=== PATIENT | male | born 1955 | race Caucasian/White ===

== ENCOUNTER 2022-12-18 07:39 | Inpatient (IN) | payer MEDICARE, OTHER, SELFPAY ==
[2022-12-18] VITALS (30 sets, daily range): BP systolic 114–191; BP diastolic 73–128; PULSE 55–87; RESP 12–20; TEMP 36.4–36.8; O2SAT 94–100; BMI 26.5
--- NOTE | 2022-12-18 | ECHO_ITS ---
Patient Info Name: Johnathan Steele Age: 67 years : 1955 Gender: Male Ht: 72 in Wt: 200 lbs BSA: 2.16 m2 HR: 60 bpm BP: 164 / 100 mmHg Heart Rhythm: Sinus Rhythm Technical Quality: Poor Exam Date: 12/18/2022 2:50 PM Exam Location: [facility] Pul[facility] Patient Status: Inpatient Admit Date: 12/18/2022 Staff Ordering Physician: Sathish Deleon MD Soil Specialist: Domi Frost RDCS Attending Provider: Barry Petit MD Exam Type: CA echo dop color flow w con Study Info Indications I21.3 - ST elevation (STEMI) myocardial infarction of unspecified site Complete two-dimensional, color flow and Doppler transthoracic echocardiogram is performed with contrast to opacify the left ventricle and to improve the deliniation of the left ventricle endocardial borders. Contrast/Agitated Saline Contrast/Ag. Saline: Definity Amount: 5.00 ml Administered By: Domi Frost RDCS Existing IV Access: Yes IV Access Condition: patent with no signs of infiltration Reason for Poor Study: poor echocardiographic windows Summary 1. Left ventricular chamber dimension is normal. 2. Left ventricular systolic function is normal, estimated at 65-70%. 3. There is mildly increased left ventricular wall thickness. 4. The left ventricular diastolic function is grade I diastolic dysfunction. 5. The basal inferolateral wall is hypokinetic. 6. Left atrial chamber dimension is mildly enlarged. 7. There is mild mitral valve regurgitation. 8. There is mild tricuspid valve regurgitation. Left Ventricle Left ventricular chamber dimension is normal. Left ventricular systolic function is normal, estimated at 65-70%. There is mildly increased left ventricular wall thickness. The left ventricular diastolic function is grade I diastolic dysfunction. The basal inferolateral wall is hypokinetic. All other boss appear normal. Right Ventricle Right ventricular chamber dimension is normal. Right ventricular systolic function is normal. Left Atria Left atrial chamber dimension is mildly enlarged. Right Atria Right atrial chamber dimension is normal. Atrial Septum Intact interatrial septum visualized by color flow imaging. Aortic Valve The aortic valve is trileaflet. There is no aortic valve sclerosis. There is no aortic valve stenosis. There is trace aortic valve regurgitation. Pulmonic Valve The pulmonic valve is normal. There is no pulmonic valve stenosis. There is trace pulmonic regurgitation. Mitral Valve The mitral valve has normal leaflets. There is no mitral valve stenosis. There is mild mitral valve regurgitation. Tricuspid Valve The tricuspid valve leaflets are normal. There is no significant tricuspid valve stenosis. There is mild tricuspid valve regurgitation. No pulmonary hypertension, estimated pulmonary arterial systolic pressure is 20 mmHg. Pericardium/Pleural The pericardium appears normal. There is no pericardial effusion. Aorta The aortic root size at the sinus of Valsalva is normal. Left Ventricular Outflow Tract Name Value Normal LVOT 2D LVOT Diameter 1.89 cm LVOT Doppler LVOT Peak Gradient 7 mmHg LVOT Mean Gradien
--- NOTE | 2022-12-18 07:45 | ECG_ITS ---
Measurements Intervals [place] Rate: 54 P: -40 NH: 123 QRS: 30 QRSD: 110 T: 83 QT: 407 QTc: 387 Interpretive Statements SINUS BRADYCARDIA MARKED ST ELEVATION, CONSIDER INFERIOR INJURY [MARKED ST ELEVATION W/O NORMALLY INFLECTED T-WAVE IN II/aVF] ACUTE WI ABNORMAL ECG NO PREVIOUS ECG AVAILABLE FOR COMPARISON Electronically Signed On 12-18-2022 12:08:38 CDT by Barry Petit M.D.
--- NOTE | 2022-12-18 08:11 | ED.CHESTPAIN ---
HPI - Chest Pain General Chief Complaint: Chest Pain Stated Complaint: chest pain Time Seen by Provider: 12/18/22 08:01 Source: patient, RN notes reviewed and old records reviewed Mode of arrival: wheelchair Limitations: no limitations History of Present Illness HPI narrative: This is a 67 year old male who presents for evaluation of chest pain. Patient states he developed substernal chest pressure 1 hour ago. He reports this pressure comes and goes. He states he is really uncomfortable. He denies radiating pain. He reports shortness of breath and nausea. He denies history of heart attack or heart disease. Related Data Allergies Allergy/AdvReac Type Severity Reaction Status Date / Time No Known Allergies Allergy Verified 07/01/14 12:07 Review of Systems Constitutional: Constitutional: Reports fatigue Cardiovascular: Cardiovascular: Reports chest pain and Denies radiating jaw, neck or arm pain Respiratory: Respiratory: Reports dyspnea Gastrointestinal: Gastrointestinal: Denies abdominal pain and Reports nausea PMFSH Past Medical History Medical History (Updated 12/18/22 @ 09:25 by Kenya Foote MD) Patient denies medical problems Social History Social History (Updated 12/18/22 @ 09:21 by Kenya Foote MD) Smoking status: Current every day smoker Exam Const: General: alert and diaphoretic Nutritional Appearance: well nourished Orientation/consciousness: patient oriented x3 HENMT: Head: normal to inspection Eyes: EOM: EOMs intact bilaterally Chest: Chest palpation & inspection: normal inspection of the chest Resp: Effort & Inspection: normal respiratory effort Auscultation: clear to auscultation bilaterally Cardio: Rate: bradycardic Rhythm: regular rhythm Heart sounds: no murmurs GI: GI Palp: Yes Soft to palpation, No Tenderness to palpation present (GI), No Guarding due to palpation present (GI) and No Rigid due to palpation Auscultation: normal bowel sounds Skin: General skin exam: normal color Rashes: no rashes Neuro: General: patient oriented x3, moves all extremities and CN's II-XI intact bilaterally Gait exam (Neuro): Normal gait present Extrem: General: normal to inspection and no pedal edema Psych: Mental Status: mental status grossly normal Affect: normal affect Attitude: cooperative Course Reevaluation(s) Reevaluation #1: Cath team is at bedside . PAtient and informed that he is having an SC. Patient given aspirin 324 mg PO , heparin bolus and zofran 4 mg IV. No metoprolol given patient is olivia cardic. No nitro as inferior SC . Patient reports pain 2.10. Date: 12/18/22 Time: 08:05 Vital Signs Vital signs: Vital Signs Temperature 97.6 F 12/18/22 07:45 Pulse Rate 55 L 12/18/22 07:45 Respiratory Rate 16 12/18/22 07:45 Blood Pressure 150/84 H 12/18/22 07:45 Pulse Oximetry 100 12/18/22 07:45 Oxygen Delivery Room Air 12/18/22 07:45 Temperature 97.6 F 12/18/22 07:45 Pulse Rate 59 L 12/18/22 08:12 Respiratory Rate 18 12/18/22 08:12 Blood Pressure 131/107 H 12/18/22 08:12 Pulse Oximetry 99 12/18/22 08:12 Oxygen Delivery Nasal Cannula 12/18/22 08:05 Oxygen Flow Rate 2 12/18/22 08:05 MDM - Chest Pain Lab Data 12/18/22 08:05 12/18/22 08:05 Labs: Lab Results 12/18/22 12/18/22 12/18/22 Range/Units 08:05 08:05 08:05 WBC 11.7 H (4.5-10.0) K/mm3 RBC 5.31 (4.6-6.20) M/mm3 Hgb 15.5 (14.0-18.0) g/dL Hct 47.7 (42.0-52.0) % MCV 89.8 (80-100) fl MCH 29.2 (26-34) pg MCHC 32.5 (32-36) g/dl RDW 13.4 (11.5-14.5) % Plt Count 270 (150-375) k/mm3 MPV 9.7 (7.4-10.4) fl Immature Gran % (Auto) 0.5 (0-0.5) % Neut % (Auto) 58.8 (45.5-73.1) % Lymph % (Auto) 29.5 (18.3-44.2) % [place] % (Auto) 7.9 (2.6-8.5) % Eos % (Auto) 2.4 (0-4.4) % Baso % (Auto) 0.9 (0.2-1.2) % Lymph # (Auto) 3.45 H (0.9-3.2) K/mm3 Mon
[2022-12-18] MEDS: ASPIRIN 81 MG CHEWABLE TABLET 324 MG PO (08:12)
[2022-12-18] MEDS: ONDANSETRON INJ 4 MG/2 ML VIAL IV PUSH (08:12)
--- NOTE | 2022-12-18 08:13 | PC.NURSE ---
Per verbal order read back by Dr. Foote, 4000 units Heparin given by [facility] Blood.
[2022-12-18 08:17] LABS: Basophils Absolute Auto 0.1 K/mm3 (0.0-0.1); Basophils Percent Auto 0.9 % (0.2-1.2); Eosinophils Absolute Auto 0.3 K/mm3 (0-0.3); Eosinophils Percent Auto 2.4 % (0-4.4); Hematocrit 47.7 % (42.0-52.0); Hemoglobin 15.5 g/dL (14.0-18.0); Immature Granulocyte Absolute 0.06 K/mm3 (0.00-0.031); Immature Granulocyte Percent A 0.5 % (0-0.5); Lymphocytes Absolute Auto 3.45 K/mm3 (0.9-3.2); Lymphocytes Percent Auto 29.5 % (18.3-44.2); Mean Corpuscular HGB Conc 32.5 g/dl (32-36); Mean Corpuscular Hemoglobin 29.2 pg (26-34); Mean Corpuscular Volume 89.8 fl (80-100); Mean Platelet Volume 9.7 fl (7.4-10.4); Monocytes Absolute Auto 0.9 K/mm3 (0.1-0.6); Monocytes Percent Auto 7.9 % (2.6-8.5); Neutrophils Absolute Auto 6.9 K/mm3 (1.3-6.7); Neutrophils Percent Auto 58.8 % (45.5-73.1); Platelet Count Result 270 k/mm3 (150-375); Red Blood Count 5.31 M/mm3 (4.6-6.20); Red Cell Distribution Width 13.4 % (11.5-14.5); White Blood Count 11.7 K/mm3 (4.5-10.0)
[2022-12-18 08:26] LABS: Alanine Aminotransferase 18 U/L (6-50); Alkaline Phosphatase 116 U/L (38-126); Anion Gap 7 mmol/L (8-16); Aspartate Amino Transferase 21 U/L (17-59); Bilirubin,Total 0.6 mg/dL (0.2-1.3); Blood Urea Nitrogen 15 mg/dL (9-20); Calcium 8.8 mg/dL (8.4-10.2); Carbon Dioxide 26 mmol/L (22-30); Chloride 104 mmol/L (98-107); Estimated CRCL calculation 65 ml/min; Estimated Glomerular Filt Rate > 60; Glucose 150 mg/dL (65-110); Lipase 118 U/L (23-300); Potassium 3.8 mmol/L (3.4-5.0); Sodium 137 mmol/L (137-145)
[2022-12-18 08:31] LABS: Prothrombin Time 13.3 Seconds (11.1-14.7)
[2022-12-18 08:32] LABS: Partial Thromboplastin Time 26.3 SECONDS (22.3-36.8)
[2022-12-18 08:38] LABS: Troponin I < 0.012 ng/mL (0.000-0.034)
--- NOTE | 2022-12-18 09:03 | ECG_ITS ---
Measurements Intervals [place] Rate: 59 P: 56 IN: 183 QRS: 26 QRSD: 102 T: 31 QT: 367 QTc: 366 Interpretive Statements SINUS BRADYCARDIA OTHERWISE NORMAL ECG COMPARED TO ECG 12/18/2022 07:53:21 ACUTE INFERIOR CURRENT OF INJURY IS NO LONGER SEEN Electronically Signed On 12-18-2022 12:18:32 CDT by Barry Petit M.D.
--- NOTE | 2022-12-18 09:07 | PM.IMHP ---
H&P: HPI History of Present Illness Date/Time: 12/18/22 09:07 Chief Complaint: chest pain Narrative: this is a 67-year-old man I am seeing in the cardiac catheterization lab phase he is being prepared for emergency angiography in the setting of ST-elevation VA. He is unknown to me prior to this encounter. He reports no known history of significant medical problems. He is a cigarette smoker. He started to experience retrosternal chest pain about 1 hour prior to coming to the emergency room this morning where his electrocardiogram demonstrates acute inferior wall VA. he has no active complaints other than moderate retrosternal chest pain with some nausea. Review of Systems Review of Systems: ROS unobtainable: Yes unobtainable due to medical condition Meds Home Medications and Allergies Allergies Allergy/AdvReac Type Severity Reaction Status Date / Time No Known Allergies Allergy Verified 07/01/14 12:07 Vital Signs Vital Signs - 24 hr 12/18/22 07:45 12/18/22 08:12 12/18/22 08:05 Temperature 36.4 C Pulse Rate 55 L 59 L Respiratory Rate 16 18 Blood Pressure 150/84 H 131/107 H Pulse Oximetry 100 99 99 Oxygen Delivery Room Air Nasal Cannula Oxygen Flow Rate 2 Exam Const: General: uncomfortable Other: Well-developed well-nourished white male appearing his stated age mild distress with chest pain HENMT: Mouth: Yes moist mucous membranes Eyes: Sclera: sclerae normal Neck: Neck: supple and no JVD Other: normal carotid pulses bilateral Resp: Effort & Inspection: normal respiratory effort Auscultation: clear to auscultation bilaterally Cardio: Rate: regular rate Rhythm: regular rhythm Other: no murmur, S4 gallop is audible GI: GI Palp: Yes Soft to palpation Auscultation: normal bowel sounds Skin: General skin exam: normal color Neuro: Other: alert and oriented x3 Extrem: Other: no edema, adequate arterial perfusion H&P: Results Labs Labs: Short CBC 12/18/22 Range/Units 08:05 WBC 11.7 H (4.5-10.0) K/mm3 Hgb 15.5 (14.0-18.0) g/dL Hct 47.7 (42.0-52.0) % Plt Count 270 (150-375) k/mm3 [facility] 12/18/22 08:05 Sodium 137 Potassium 3.8 Chloride 104 Carbon Dioxide 26 BUN 15 Creatinine 1.10 Glucose 150 H Calcium 8.8 Cardiac Enzymes 12/18/22 Range/Units 08:05 Troponin I < 0.012 (0.000-0.034) ng/mL Liver Function 12/18/22 Range/Units 08:05 Total Bilirubin 0.6 (0.2-1.3) mg/dL AST 21 (17-59) U/L ALT 18 (6-50) U/L Alkaline Phosphatase 116 (38-126) U/L Albumin 4.0 (3.5-5.1) g/dL Assessment and Plan Assessment and plan (1) ST elevation [place] (STEMI): Code(s): I21.3 - ST elevation (STEMI) myocardial infarction of unspecified site Status: Acute Plan 67-year-old man with chronic cigarette smoking presents with chest pain and acute inferior wall ST-elevation VA. PlansAre now being made for emergency angiography and revascularization as indicated by those findings Barry Petit MD [facility]
--- NOTE | 2022-12-18 09:10 | WPDCARDPROC ---
Cardiac Cath Procedure Note Date of procedure:: 12/18/22 Performing physician:: Barry Petit MD Indication:: ST elevation ID Brief clinical history:: this is a 67-year-old man longstanding cigarette smoker who presents this morning with chest pain and ECG evidence of acute inferior wall ID Procedure Procedure performed:: emergency coronary angiography emergency PCI (FITZ) to the proximal right coronary artery left ventriculography Sedation/Medication given:: no sedation given the patient received aspirin in the emergency room received 180 mg Brilinta prior to PCI and procedural anticoagulation with bolus and infusion of Angiomax. Case start time 8:20 a.m. case end time 8:53 a.m. Access site:: right femoral artery Estimated blood loss:: 25 cc Procedure note:: patient was brought to the cardiac blood bank laboratory technologist in emergent setting described above the right femoral triangle was prepared and draped in the usual fashion. With 10 cc of lidocaine was and infiltrated for anesthesia over the femoral artery the vessel was then punctured using the modified Seldinger technique and a 6 Icelandic vascular sheath was placed. After this I used a 5 Icelandic FL4 catheter to engage and inject the left coronary artery in multiple projections. Following this I used a 6 [place]ic JR4 guiding catheter to engage inject the right coronary artery. Following this the cineangiograms were then reviewed and PCI of the right coronary artery was recommended and carried out as detailed below. Following PCI used a 5 Icelandic angled pigtail catheter to measure left-sided hemodynamics and to inject LV g in the 30 degree COMBS projection. The case was then terminated. the sheath was sutured into position with 2-0 silk and the patient was taken to the ICU for post mi/PCI recovery. Procedure was well tolerated and uncomplicated. There was no evidence of groin hematoma upon him leaving the cardiac catheterization lab. Findings:: Hemodynamics: Central aortic pressure is 184 over 96 left ventricle 184/5 end-diastolic 18 there is no gradient on pullback across the aortic valve. Left ventricle: The inferior wall of the LV is hypodynamic but not akinetic the overall systolic function is normal ejection fraction is 55% by visual estimation the left main coronary artery is short but patent. The left anterior descending is a heavily calcified artery proximally. There is a 90-95% stenosis in proximal LAD in this segment of heavy calcification this is a medium length tubular lesion. There is also total occlusion of a proximal diagonal branch that was originating from this proximal heavily calcified area. The remainder of the LAD is medium in size but free of significant lesions. The circumflex size a medium caliber artery which has mild 30% stenosis in the trunk of the circumflex. The 1st OM branch arises as a ramus intermedius and has a proximal 60-70% stenosis. There was TIKA 3 flow throughout the circumflex system. Right coronary artery is severely diseased proximally it is dominant to the posterior circulation. There is 99% stenosis in RCA between the 1st and 2nd portions. There was then mild to moderate stenosis back to the ostium. There is TIKA 1 flow in the RCA at the start of the case. Intervention: The right coronary as stated above was engaged using a 6 [place]ic JR4 catheter. The 0.014 BMW coronary guidewire was used to wire the artery and it was placed into the distal RCA without difficulty. I pre-dilated the lesion using a 3 x 20 mm Jovany PTCA balloon at nominal pressure. I then stented the target lesion using a 3.5 x 30 mm Orsiro stent with a very good result at the target lesion. There was proximal disease to the stent which I then treated with another 3.5 x 13 mm stent of the same type. I then post dilated the entire stented area using a 3.75 by 20 mm noncompliant balloon at 14 atmospheres. At the end of the procedure the vessel is widely
--- NOTE | 2022-12-18 09:15 | PC.NURSE ---
This patient, Johnathan Steele, was admitted to Intensive Care Unit-5. Patient/family oriented to hospital policies and general routines including ID bracelet, bed and alarms, visiting hours, pain management, procedures, bathroom and other care routines, personal items, smoking policy, room service/diet, and visiting hours. Information on how to activate the Rapid Response Team has been discussed. Patient/Family are encouraged to report perceived risks to care and to ask questions if they do not understand what they are told or what they should do.
--- NOTE | 2022-12-18 09:30 | WPDCNINT ---
Assessment and Plan Assessment and plan (1) ST elevation [place] (STEMI): Code(s): I21.3 - ST elevation (STEMI) myocardial infarction of unspecified site Status: Acute Assessment and Plan: Inferior STEMI status post PCI with 2x FITZ placement in RCA Patient also has a high-grade calcified proximal LAD lesion which will be treated in a staged fashion likely at outside hospital Admit to ICU and telemetry monitoring Currently hemodynamically stable Arterial sheath will be removed as per protocol Check echocardiogram Patient has been started on aspirin losartan metoprolol Crestor and Brilinta IV fluids (2) Coronary artery disease: Code(s): I25.10 - Atherosclerotic heart disease of [place] coronary artery without angina pectoris Status: Acute Assessment and Plan: See above (3) Tobacco abuse: Code(s): Z72.0 - Tobacco use Status: Acute Assessment and Plan: Patient was counseled and encouraged to quit smoking (4) Hypertension: Code(s): I10 - Essential (primary) hypertension Status: Acute Assessment and Plan: Patient states that he has history of hypertension the past and was on medication in the past but was taken off as his blood pressure was better. He states that his blood pressure was normal on last physical exam 6 months ago as an outpatient. Currently his blood pressure is elevated but it be from anxiety. Patient has been started on metoprolol losartan I will add p.r.n. labetalol and hydralazine at this time. Plan DVT prophylaxis -Angiomax Nutrition -heart healthy diet Code Status - Full Code Claims Service Adjustor Consult Note Consult date: 12/18/22 Reason for consult: STEMI HPI: Johnathan Steele is a 67 year old male with no significant past medical history presented with chief complaint of chest pressure. Chest pressure started suddenly about 1 hour prior to presentation. Patient rates at 3/10. No radiation. Chest pressure was associated with nausea but no vomiting also was associated with shortness of breath. Patient was brought to ER and on workup found to be having ST segment elevation in his inferior leads. Code STEMI was called and patient was taken to cardiac catheterization lab where he underwent PCI. Cardiac catheterization showed 1.? ? Right coronary dominant circulation with acute inferior ST-elevation [place] with long area of high-grade stenosis in the proximal right coronary artery being the culprit for this.? This was successfully treated using the two? 3.5 mm Orsiro? drug-eluting stents detailed above with very good angiographic result. 2.? ? High-grade heavily calcified proximal LAD disease which obviously is unrelated to this infarction as detailed above 3. ? moderate disease in the ramus intermedius/ OM1 and mild disease in the trunk of the circumflex as detailed above 4. ? mild inferior hypokinesia with overall normal ejection fraction Patient now admitted to ICU for further evaluation. At this time he states his chest pain has completely resolved and he denies any symptoms. Patient denies fever, chest pain, shortness of breath, cough, nausea vomiting, abdominal pain,, diarrhea, headache or constipation.. All other systems reviewed and were negative Patient is in sinus rhythm with heart rate in 60s saturation 98% on nasal cannula and blood pressure is slightly elevated Review of Systems Review of Systems: All systems reviewed & are unremarkable except as noted in HPI and below (HPI) [facility] Past Medical History Medical History (Updated 12/18/22 @ 10:06 by Sathish Deleon MD) Hx of nephrolithotomy with removal of calculi Hypertension Nephrolithiasis Patient denies medical problems Sciatic nerve pain Social History Social History (Updated 12/18/22 @ 10:04 by Sathish Deleon MD) Social History: Denies any alcohol or drug use. Smokes 1 pack over a week. Has been smoking for more than 40 years. Smoking status: Current every day smoker Meds
[2022-12-18] MEDS: ROSUVASTATIN 10 MG TABLET 20 MG PO (09:47)
[2022-12-18] MEDS: SODIUM CHLORIDE 0.9% IV 1,000 ML 125 ML IV CONT (09:47)
[2022-12-18] MEDS: LOSARTAN POTASSIUM 50 MG TABLET PO (09:47)
--- NOTE | 2022-12-18 09:56 | PC.NURSE ---
Cardiopulmonary Rehab Services flyer was given to patient.
[2022-12-18] MEDS: METOPROLOL TARTRATE 25 MG TABLET PO ×2 (11:09→18:02)
[2022-12-18] MEDS: hydrALAZINE HCL 20 MG/ML VIAL IV PUSH (11:19)
[2022-12-18 11:35] LABS: Cholesterol 257 mg/dL (0-200); HDL Direct 44 mg/dL; Triglycerides 120 mg/dL (<150)
[2022-12-18 11:45] LABS: LDL Cholesterol Direct 169 mg/dL
[2022-12-18 11:50] LABS: Troponin I 0.337 ng/mL (0.000-0.034)
[2022-12-18] MEDS: PERFLUTREN LIPID MICROSPHERES 1.5 ML VIAL DILUTED TO 10 ML TOTAL VOLUME IV PUSH (15:05)
--- NOTE | 2022-12-18 15:25 | IVDEFINITY ---
Prior to administration of IV Definity the patient was educated on the risks and benefits of the imaging enhancing agent including potential adverse side effects. The patient verbalized understanding. Allergies were verified. No exclusion criteria were identified and at least one of the following inclusion criteria were met: 1) physician request, 2) patient technically difficult to image (per the [employer] Echocardi[employer] guidelines of two or more segments not discernable within the apical view), or 3) questionable left ventricular function. ?
[2022-12-18] MEDS: TICAGRELOR 90 MG TABLET PO (20:37)
[2022-12-19] VITALS (19 sets, daily range): BP systolic 99–141; BP diastolic 52–108; PULSE 52–66; RESP 14–22; TEMP 36.7–36.9; O2SAT 96–99
[2022-12-19] MEDS: METOPROLOL TARTRATE 25 MG TABLET PO ×3 (00:59→19:19)
[2022-12-19 03:48] LABS: Hematocrit 44.5 % (42.0-52.0); Hemoglobin 14.9 g/dL (14.0-18.0); Mean Corpuscular HGB Conc 33.5 g/dl (32-36); Mean Corpuscular Hemoglobin 29.7 pg (26-34); Mean Corpuscular Volume 88.8 fl (80-100); Mean Platelet Volume 9.9 fl (7.4-10.4); Platelet Count Result 237 k/mm3 (150-375); Red Blood Count 5.01 M/mm3 (4.6-6.20); Red Cell Distribution Width 13.4 % (11.5-14.5); White Blood Count 12.7 K/mm3 (4.5-10.0)
[2022-12-19 04:03] LABS: Alanine Aminotransferase 17 U/L (6-50); Albumin Level 3.5 g/dL (3.5-5.1); Alkaline Phosphatase 107 U/L (38-126); Anion Gap 6 mmol/L (8-16); Aspartate Amino Transferase 30 U/L (17-59); Bilirubin,Total 0.3 mg/dL (0.2-1.3); Blood Urea Nitrogen 19 mg/dL (9-20); Calcium 8.5 mg/dL (8.4-10.2); Carbon Dioxide 24 mmol/L (22-30); Chloride 109 mmol/L (98-107); Estimated CRCL calculation 65 ml/min; Estimated Glomerular Filt Rate > 60; Glucose 117 mg/dL (65-110); Magnesium 2.1 mg/dL (1.6-2.3); Sodium 139 mmol/L (137-145)
--- NOTE | 2022-12-19 05:11 | ECG_ITS ---
Measurements Intervals [place] Rate: 55 P: 72 IA: 172 QRS: 17 QRSD: 93 T: -24 QT: 386 QTc: 372 Interpretive Statements SINUS BRADYCARDIA NONSPECIFIC T-WAVE ABNORMALITY ABNORMAL ECG COMPARED TO ECG 12/18/2022 11:11:36 T-WAVE ABNORMALITY NOW PRESENT Electronically Signed On 12-19-2022 12:14:11 CDT by Karan Gonzalez M.D.
[2022-12-19] MEDS: TICAGRELOR 90 MG TABLET PO ×2 (08:19→19:20)
[2022-12-19] MEDS: LOSARTAN POTASSIUM 50 MG TABLET PO (08:19)
[2022-12-19] MEDS: ASPIRIN 81 MG CHEWABLE TABLET PO (08:19)
[2022-12-19] MEDS: ROSUVASTATIN 10 MG TABLET 20 MG PO (08:19)
--- NOTE | 2022-12-19 08:20 | WPDINTPN ---
Progress Note: A&P Assessment and Plan (1) ST elevation [place] (STEMI): Code(s): I21.3 - ST elevation (STEMI) myocardial infarction of unspecified site Status: Acute Assessment and Plan: Inferior STEMI status post PCI with 2x FITZ placement in RCA Patient also has a high-grade calcified proximal LAD lesion which will be treated in a staged fashion likely at outside hospital Currently hemodynamically stable and chest pain-free Continue telemetry monitoring Continue aspirin losartan metoprolol Crestor and Brilinta IV fluids completed Echocardiogram Summary ? 1. Left ventricular chamber dimension is normal. ? 2. Left ventricular systolic function is normal, estimated at 65-70%. ? 3. There is mildly increased left ventricular wall thickness. ? 4. The left ventricular diastolic function is grade I diastolic dysfunction. ? 5. The basal inferolateral wall is hypokinetic. ? 6. Left atrial chamber dimension is mildly enlarged. ? 7. There is mild mitral valve regurgitation. ? 8. There is mild tricuspid valve regurgitation. (2) Coronary artery disease: Code(s): I25.10 - Atherosclerotic heart disease of [place] coronary artery without angina pectoris Status: Acute Assessment and Plan: See above (3) Tobacco abuse: Code(s): Z72.0 - Tobacco use Status: Acute Assessment and Plan: Patient was counseled and encouraged to quit smoking (4) Hypertension: Code(s): I10 - Essential (primary) hypertension Status: Acute Assessment and Plan: Patient states that he has history of hypertension the past and was on medication in the past but was taken off as his blood pressure was better. He states that his blood pressure was normal on last physical exam 6 months ago as an outpatient. Blood pressure control improved with metoprolol losartan He is also on p.r.n. labetalol and hydralazine at this time. Plan DVT prophylaxis -patient ambulating Nutrition -heart healthy diet Code Status - Full Code Transfer out of ICU today Subjective Date/time seen: 12/19/22 Overnight events reviewed. Afebrile Patient states he feels good and denies any complaints this morning. He feels he is ready to be discharged. Patient denies fever, chest pain, shortness of breath, cough, nausea vomiting, abdominal pain,, diarrhea, headache or constipation.. All other systems were reviewed and were negative Sinus Michael on the monitor and blood pressure improved. Other Vitals acceptable Review of Systems Review of Systems: All systems reviewed & are unremarkable except as noted in HPI and below (HPI) Exam Narrative: General: Pt is alert awake and in NAD Lungs/Chest: Trachea central Clear BS B/L, No crackles or wheezing. Cardiac: RRR. Normal S1 S2. No murmurs Circulation: Pedal pulses are intact and symmetrical. Abdomen: Normal bowel sounds.. Soft. NT. ND. Extremities: No clubbing, cyanosis or edema. Warm small area of bruising in the right groin with no hematoma felt on exam. No tenderness : [place] in place Neurologic: Follows commands. Moves all 4 extremities PERRL AO x3 Skin: No Rash Objective Data Vital Signs Vital Signs: Vital Signs - 24 hr 12/18/22 09:15 12/18/22 09:30 12/18/22 10:00 Temperature Pulse Rate 62 64 75 Respiratory Rate 16 18 13 Blood Pressure 171/98 H 169/92 H 171/100 H Pulse Oximetry 98 98 100 Oxygen Delivery 12/18/22 10:00 12/18/22 10:00 12/18/22 10:30 Temperature Pulse Rate 67 78 Respiratory Rate 18 Blood Pressure 191/128 H Pulse Oximetry 100 Oxygen Delivery Room Air 12/18/22 11:09 12/18/22 11:00 12/18/22 12:45 Temperature Pulse Rate 70 63 70 Respiratory Rate 18 20 Blood Pressure 164/100 H 133/88 Pulse Oximetry 99 98 Oxygen Delivery 12/18/22 12:00 12/18/22 13:00 12/18/22 12:15 Temperature Pulse Rate 70 73 Respiratory Rate 18 18 Blood Pressure 145/90 H 121/76 Pulse Oximetry 98 98 Oxygen Delivery Room
--- NOTE | 2022-12-19 08:58 | PM.PNCARD ---
Progress Note: A&P Assessment and Plan (1) ST elevation [place] (STEMI): Code(s): I21.3 - ST elevation (STEMI) myocardial infarction of unspecified site Status: Acute Assessment and Plan: Status post PCI to the RCA with 2 FITZ. Looks good. Okay to transfer intermediate care unit. Change his metoprolol to 25 mg p.o. q.12 hours as he is mildly bradycardic.. Continue losartan. Will add to his regimen as needed. Anticipate DC tomorrow (2) Hypertension: Code(s): I10 - Essential (primary) hypertension Status: Acute Assessment and Plan: Continue losartan and metoprolol. Follow BP and up titrate or add to this regimen as needed (3) Tobacco abuse: Code(s): Z72.0 - Tobacco use Status: Acute Assessment and Plan: Tobacco abuse counseling performed. (4) Coronary artery disease: Code(s): I25.10 - Atherosclerotic heart disease of [place] coronary artery without angina pectoris Status: Acute Assessment and Plan: Continue dual anti-platelet therapy, statin, metoprolol, losartan. Tobacco abuse counseling performed. Will need intervention to the LAD as an outpatient to be scheduled before discharge (5) Hyperlipidemia LDL goal <70: Code(s): E78.5 - Hyperlipidemia, unspecified Status: Acute Assessment and Plan: Continue statin Subjective Date/time seen: 12/19/22 08:58 Interval history: 67-year-old admitted for an inferior STEMI status post PCI Date of service 12/19/2022: Feels wonderful today. No chest pain, shortness of breath. No groin pain. Review of Systems Review of Systems: All systems reviewed & are unremarkable except as noted in HPI and below Constitutional: Constitutional: Denies body ache(s) ENT: Reports Normal hearing present Cardiovascular: Cardiovascular: Denies chest pain Gastrointestinal: Gastrointestinal: Denies abdominal pain Genitourinary: Genitourinary: Denies hematuria Psychiatric: Psychiatric: Denies behavioral changes Endocrine: Endocrine: Denies change in body appearance Hematologic/Lymphatic: Hematologic/Lymphatic: Denies easy bleeding Exam Const: General: comfortable and no acute distress HENMT: Face/Nose/Sinus: Normal nares present Mouth: Yes moist mucous membranes Eyes: Sclera: sclerae normal Neck: Neck: supple and no JVD Other: normal carotid pulses bilateral Resp: Effort & Inspection: normal respiratory effort Auscultation: clear to auscultation bilaterally Cardio: Rate: bradycardic Rhythm: regular rhythm Other: no murmur, S4 gallop is audible GI: Auscultation: normal bowel sounds Skin: General skin exam: normal color Neuro: Speech: normal speech Sensory Exam: normal sensation Other: alert and oriented x3 Extrem: Other: Right groin is free of hematoma or bruit. Does have some bruise Psych: Mental Status: mental status grossly normal Objective Data Vital Signs Vital Signs: Vital Signs - 24 hr 12/18/22 09:15 12/18/22 09:30 12/18/22 10:00 Temperature Pulse Rate 62 64 75 Respiratory Rate 16 18 13 Blood Pressure 171/98 H 169/92 H 171/100 H Pulse Oximetry 98 98 100 Oxygen Delivery 12/18/22 10:00 12/18/22 10:00 12/18/22 10:30 Temperature Pulse Rate 67 78 Respiratory Rate 18 Blood Pressure 191/128 H Pulse Oximetry 100 Oxygen Delivery Room Air 12/18/22 11:09 12/18/22 11:00 12/18/22 12:45 Temperature Pulse Rate 70 63 70 Respiratory Rate 18 20 Blood Pressure 164/100 H 133/88 Pulse Oximetry 99 98 Oxygen Delivery 12/18/22 12:00 12/18/22 13:00 12/18/22 12:15 Temperature Pulse Rate 70 73 Respiratory Rate 18 18 Blood Pressure 145/90 H 121/76 Pulse Oximetry 98 98 Oxygen Delivery Room Air 12/18/22 12:20 12/18/22 12:25 12/18/22 12:30 Temperature Pulse Rate 73 71 76 Respiratory Rate 18 18 18 Blood Pressure 138/97 H 130/87 133/86 Pulse Oximetry 99 99 98 Oxygen Delivery 0
[2022-12-20] VITALS: PULSE 49; PULSE 51; RESP 16; O2SAT 98
[2022-12-20 02:00] VITALS: PULSE 51
[2022-12-20 02:50] LABS: Hematocrit 44.6 % (42.0-52.0); Hemoglobin 14.7 g/dL (14.0-18.0); Mean Corpuscular Hemoglobin 29.5 pg (26-34); Mean Corpuscular Volume 89.6 fl (80-100); Mean Platelet Volume 9.8 fl (7.4-10.4); Platelet Count Result 226 k/mm3 (150-375); Red Blood Count 4.98 M/mm3 (4.6-6.20); Red Cell Distribution Width 13.6 % (11.5-14.5); White Blood Count 12.6 K/mm3 (4.5-10.0)
[2022-12-20 03:01] LABS: Alanine Aminotransferase 18 U/L (6-50); Albumin Level 3.5 g/dL (3.5-5.1); Alkaline Phosphatase 96 U/L (38-126); Anion Gap 3 mmol/L (8-16); Aspartate Amino Transferase 23 U/L (17-59); Bilirubin,Total 0.4 mg/dL (0.2-1.3); Blood Urea Nitrogen 17 mg/dL (9-20); Calcium 8.5 mg/dL (8.4-10.2); Carbon Dioxide 25 mmol/L (22-30); Chloride 109 mmol/L (98-107); Estimated CRCL calculation 79 ml/min; Estimated Glomerular Filt Rate > 60; Glucose 105 mg/dL (65-110); Magnesium 1.9 mg/dL (1.6-2.3); Potassium 4.1 mmol/L (3.4-5.0); Sodium 137 mmol/L (137-145)
[2022-12-20 04:00] VITALS: BP 127/84; PULSE 51; RESP 16; RESP 18; TEMP 36.8; O2SAT 98
[2022-12-20 06:00] VITALS: PULSE 53
[2022-12-20 08:00] VITALS: BP 142/69; PULSE 60; RESP 16; TEMP 36.9; O2SAT 98
[2022-12-20] MEDS: LOSARTAN POTASSIUM 50 MG TABLET PO (08:40)
[2022-12-20] MEDS: METOPROLOL TARTRATE 25 MG TABLET PO (08:40)
[2022-12-20] MEDS: ASPIRIN 81 MG CHEWABLE TABLET PO (08:40)
[2022-12-20] MEDS: TICAGRELOR 90 MG TABLET PO (08:40)
[2022-12-20] MEDS: ROSUVASTATIN 10 MG TABLET 20 MG PO (08:40)
--- NOTE | 2022-12-20 09:07 | PM.DS ---
DS: Admitting Diagnosis Discharge Date 12/20/2022 Admitting Diagnosis Chest pain DS: Discharge Diagnosis Discharge Diagnosis (1) ST elevation [place] (STEMI): Code(s): I21.3 - ST elevation (STEMI) myocardial infarction of unspecified site Status: Acute Assessment and Plan: Status post PCI to the RCA with 2 FITZ. Stable and ready for discharge today. Continue DAPT with ASA, Brilinta Continue statin Continue risk factor modification for CAD including smoking cessation Will need LAD intervention in a month or so, this will take place at [facility] or [facility] Cardiac rehab referral sent (2) Hypertension: Code(s): I10 - Essential (primary) hypertension Status: Acute Assessment and Plan: Continue losartan and metoprolol. (3) Tobacco abuse: Code(s): Z72.0 - Tobacco use Status: Acute Assessment and Plan: Tobacco abuse counseling performed. (4) Coronary artery disease: Code(s): I25.10 - Atherosclerotic heart disease of [place] coronary artery without angina pectoris Status: Acute Assessment and Plan: New diagnosis presenting acute inferior [place] now s/p PCI to the RCA with 2 FITZ. Continue dual anti-platelet therapy with ASA and Brilinta Continue statin Continue metoprolol Continue losartan Tobacco cessation recommended Will need intervention to the LAD as an outpatient at a facility offering rotablade as the lesion in his LAD is heavily calcified. (5) Hyperlipidemia LDL goal <70: Code(s): E78.5 - Hyperlipidemia, unspecified Status: Acute Assessment and Plan: Continue statin DS: Summary Hospital Course Hospital Course: Presented to ED with chief complaint of chest pain. EKG consistent with acute inferior myocardial infarction. He was taken emergently to the [facility] for angiogram and primary PCI. He received 2 FITZ to the RCA. He has a heavily calcified lesion in the LAD that is to be addressed at a facility that offers rotablade treatment. He did not have any significant complications and recovered as expected following STEMI. Stable, feeling well, and appropriate for discharge home today. Time Spent with Patient Time attestation: Total time spent providing and/or coordinating discharge services: Exam Const: General: comfortable and no acute distress HENMT: Face/Nose/Sinus: Normal nares present Mouth: Yes moist mucous membranes Eyes: Sclera: sclerae normal Neck: Neck: supple and no JVD Other: normal carotid pulses bilateral Resp: Effort & Inspection: normal respiratory effort Auscultation: clear to auscultation bilaterally Cardio: Rate: regular rate and bradycardic Rhythm: regular rhythm Other: no murmur, S4 gallop is audible GI: Auscultation: normal bowel sounds Skin: General skin exam: normal color Neuro: Cranial nerves: Yes Normal hearing present Speech: normal speech Sensory Exam: normal sensation Other: alert and oriented x3 Extrem: Other: Right groin is free of hematoma or bruit. Ecchymosis present. Psych: Mental Status: mental status grossly normal DS: Data Data Completed and Pending Completed studies during hospitalization: 2D echo with Doppler 1. Left ventricular chamber dimension is normal. 2. Left ventricular systolic function is normal, estimated at 65-70%. 3. There is mildly increased left ventricular wall thickness. 4. The left ventricular diastolic function is grade I diastolic dysfunction. 5. The basal inferolateral wall is hypokinetic. 6. Left atrial chamber dimension is mildly enlarged. 7. There is mild mitral valve regurgitation. 8. There is mild tricuspid valve regurgitation Labs on day of discharge: Labs from last 24 hours 12/20/22 02:45 WBC 12.6 H RBC 4.98 Hgb 14.7 Hct 44.6 MCV 89.6 MCH 29.5 MCHC 33.0 RDW 13.6 Plt Count 226 MPV 9.8 Sodium 137 Potassium 4.1 Chloride 109 H Carbon Dioxide 25 Anion G
[2022-12-20 10:00] VITALS: PULSE 60
== END 2022-12-20 11:15 | disposition home or self-care (01) | DRG 247 ==
LOC: ANHED 08:27 → ANHICU 08:32
PROVIDERS: Internal Medicine; Admitting Provider Specialist; Emergency Provider General Practice; Visit Provider Nurse Practitioner
PROC: 4A023N7 Measurement of Cardiac Sampling and Pressure, Left Heart, Percutaneous Approach (ICD-10-PCS; CPT 93452; principal; 2022-12-18 08:05)
PROC: 027035Z Dilation of Coronary Artery, One Artery with Two Drug-eluting Intraluminal Devices, Percutaneous Approach (ICD-10-PCS; 2022-12-18 08:05)
DX: I21.19 ST elevation (STEMI) myocardial infarction involving other coronary artery of inferior wall (principal); I25.10 Atherosclerotic heart disease of native coronary artery without angina pectoris; I10 Essential (primary) hypertension; E78.5 Hyperlipidemia, unspecified; F17.210 Nicotine dependence, cigarettes, uncomplicated; Z90.5 Acquired absence of kidney
CPT/HCPCS: 36415; 80053; 80061; 83690; 83735; 84484; 85025; 85027; 85610; 85730; 86850; 86900; 86901; 93005; 93458; 99285; A9270; C1725; C1769; C1874; C1887; C1894; C8929; C9606; J0360; J0461; J0583; J1644; J2405; J7030; J7040; L1830; Q9957